=== PATIENT | male | born 1950 ===

== ENCOUNTER 2020-03-04 05:31 | Day surgery (SDC) | payer OTHER ==
[~2020-03-04] VITALS: Ht 177.8 cm; Wt 70.8 kg
[2020-03-04] VITALS (16 sets, daily range): BP systolic 120–156; BP diastolic 72–86
[~2020-03-04 05:31] MED LIST: ATEN25TA PO; LOSA100T58 PO; OMEP40CA13 PO; SIMV-43 PO; SPIR25TA6 PO
[2020-03-04] MEDS ORDERED: SODIUM CHLORIDE 0.9% 1000ML 1,000 ML IV ONE (10:24)
[2020-03-04] MEDS ORDERED: IOHEXOL-350 50ML VIAL IV ONE (10:45)
[2020-03-04] MEDS ORDERED: PROPOFOL 10 MG/ML 20ML VIAL IV ONE (10:47)
[2020-03-04] MEDS ORDERED: FENTANYL CITRATE PF 50 MCG/1 ML 2ML VIAL ONE (10:47)
[2020-03-04] MEDS ORDERED: SUCCINYLCHOLINE 200MG/10ML SYR ONE (10:47)
[2020-03-04] MEDS ORDERED: ROCURONIUM 10MG/1ML SYR 10 MG/ML ML ONE (10:49)
[2020-03-04] MEDS ORDERED: INDOMETHACIN 50 MG SUPP.RECT RC SCH (11:00)
[2020-03-04] MEDS ORDERED: EPHEDRINE SULFATE 50 MG/ML AMPULE ONE (11:08)
[2020-03-04] MEDS ORDERED: GLYCOPYRROLATE 0.2 MG/ML 5 ML VIAL ONE (11:51)
--- NOTE | 2020-03-04 13:05 | NUR ---
ASSESSMENT RECEIVED PT FROM RAPHAEL LERMA. PT [id number]. ABD SOFT TO TOUCH. DENIES ANY PAIN.
--- NOTE | 2020-03-04 13:55 | NUR ---
DISCHARGE ORAL AND WRITTEN DISCHARGE INSTRUCTIONS GIVEN TO PT AND PTS DAUGHTER. INSTRUCTED ON IMPORTANCE OF REMAINING NPO UNTIL 6 PM. BOTH VERBALIZED UNDERSTANDING.
== END 2020-03-04 14:05 | disposition home or self-care (01) ==
LOC: DAH 05:31 → ENDO 05:31
PROVIDERS: ATTEND Internal Medicine Gastroenterology
DX: K80.32 Calculus of bile duct with acute cholangitis without obstruction (principal); K29.70 Gastritis, unspecified, without bleeding; K21.0 Gastro-esophageal reflux disease with esophagitis; N40.1 Benign prostatic hyperplasia with lower urinary tract symptoms; E78.5 Hyperlipidemia, unspecified; B18.1 Chronic viral hepatitis B without delta-agent; I10 Essential (primary) hypertension; Z86.010 Personal history of colon polyps; Z98.890 Other specified postprocedural states
CPT/HCPCS: 43265; 43275; 74328; A4215 ×2; A4221; A4222; A4223; A4606; A4657 ×2; A4663; C1769; C1773; J0330; J2704; J3010; J3490 ×2; J7030 ×2; Q9967; 43249; 43273; 74330